=== PATIENT | male | born 1995 | race Caucasian/White ===

== ENCOUNTER 2019-08-05 22:25 | Emergency (ER) | payer SELFPAY ==
[~2019-08-05] VITALS: Ht 182.9 cm; Wt 81.6 kg
[2019-08-05 22:33] VITALS: BP_SYST 144
[2019-08-05 22:40] VITALS: BP_SYST 144
== END 2019-08-05 22:36 | disposition left against medical advice (07) ==
LOC: SED 22:25
DX: R55 Syncope and collapse (principal); R42 Dizziness and giddiness; F12.90 Cannabis use, unspecified, uncomplicated
CPT/HCPCS: 99283

== ENCOUNTER 2019-11-16 14:47 | Emergency (ER) | payer SELFPAY ==
[~2019-11-16] VITALS: Ht 182.9 cm; Wt 74.8 kg
[2019-11-16 14:55] VITALS: BP_SYST 135
[2019-11-16 16:15] VITALS: BP_SYST 119
== END 2019-11-16 16:15 | disposition home or self-care (01) ==
LOC: SED 14:47
DX: K04.7 Periapical abscess without sinus (principal); K02.9 Dental caries, unspecified; Z88.0 Allergy status to penicillin
CPT/HCPCS: 99283

== ENCOUNTER 2019-11-18 20:19 | Emergency (ER) | payer SELFPAY ==
[~2019-11-18] VITALS: Ht 182.9 cm; Wt 74.8 kg
[2019-11-18 20:30] VITALS: BP_SYST 153
--- NOTE | 2019-11-18 22:06 | NUR ---
Patient to ER bed 04 to gown for evaluation. Side rails up. Report given to AMBREEN Arias.
--- NOTE | 2019-11-18 22:10 | NUR ---
ER at bedside examining patient.
--- NOTE | 2019-11-18 22:12 | NUR ---
Pt presents to the ER c/o R lower tooth pain x 1 week. Pt came to ER on 11/16/19 and given clindamycin w/ no relief. Pt states pain has worsen and radiated to the jaw. Pt denies fever or SOB.
[2019-11-18] MEDS ORDERED: HYDROcodone/ACETAMIN 5-325 MG TAB (NORCO/ VICODIN) PO ONE (22:30)
[2019-11-18] MEDS ORDERED: CLINDAMYCIN 600 mg/50mL D5W 50 ML IV ONE (22:30)
[2019-11-18] MEDS ORDERED: DEXAMETHASONE SOD PHOSPHATE 10 MG/ML VIAL IVP ONE (22:30)
[2019-11-18] MEDS ORDERED: CLINDAMYCIN 900 mg/50mL D5W 50 ML IV ONE (22:45)
[2019-11-18] MEDS ORDERED: IOHEXOL 100 ML IV ONE (23:05)
--- NOTE | 2019-11-18 23:10 | NUR ---
Pt taken for CT scan w/ IV contrast via gurney by limited radiology technician.
--- NOTE | 2019-11-18 23:18 | NUR ---
Pt back from CT scan, in stable condition.
[2019-11-19 00:50] LABS: BASOPHILS # (AUTO) 0.1 K/uL (0.0-0.2); BASOPHILS % (AUTO) 0.5 % (0.0-2.0); EOSINOPHILS # (AUTO) 0.3 K/uL (0.0-0.4); EOSINOPHILS % (AUTO) 2.1 % (0.0-4.0); HEMATOCRIT 47.4 % (36-54); HEMOGLOBIN 15.9 g/dL (14.0-18.0); LYMPHOCYTES # (AUTO) 1.1 K/uL (1.0-5.5); LYMPHOCYTES % (AUTO) 7.9 % (20.5-51.5); MEAN CORPUSCULAR HEMOGLOBIN 31 pg (27-31); MEAN CORPUSCULAR HGB CONC 33 % (32-36); MEAN CORPUSCULAR VOLUME 92 fL (79.0-98.0); MONOCYTES # (AUTO) 1.4 K/uL (0.0-1.0); MONOCYTES % (AUTO) 10.8 % (1.7-9.3); NEUTROPHILS # (AUTO) 10.5 K/uL (1.8-7.7); NEUTROPHILS % (AUTO) 78.7 % (40.0-70.0); PLATELET COUNT (AUTO) 231 K/uL (130-430); RED BLOOD CELL COUNT(AUTO) 5.15 MIL/uL (4.2-6.2); RED CELL DISTRIBUTION WIDTH 13.8 % (9.0-15.0); WHITE BLOOD COUNT (AUTO) 13.3 K/uL (4.8-10.8)
[2019-11-19 01:05] LABS: CALCIUM 9.6 mg/dL (8.4-11.0); POTASSIUM 4.2 mmol/L (3.5-5.1)
[2019-11-19 01:15] LABS: INR 0.9 (0.80-1.20); PROTHROMBIN TIME 9.5 SECS (9.5-12.5)
[2019-11-19 01:20] VITALS: BP_SYST 137
--- NOTE | 2019-11-19 01:20 | NUR ---
Patient given written and verbal discharge instructions and verbalizes understanding. ER MD discussed with patient the results and treatment provided. Patient in stable condition. ID arm band removed. IV catheter removed intact and dressing applied, no active bleeding. Rx of [place] 5/325 given. Patient educated on pain management and to follow up with PMD. Pain Scale 6/10. Opportunity for questions provided and answered. Medication side effect fact sheet provided.
== END 2019-11-19 01:20 | disposition home or self-care (01) ==
LOC: SED 20:19
DX: J03.90 Acute tonsillitis, unspecified (principal); Z88.0 Allergy status to penicillin
CPT/HCPCS: 36415; 70491; 80048; 83605; 85025; 85610; 85730; 87040; 96365; 96375; 99284; J1100; J3490; Q9967

== ENCOUNTER 2019-11-19 23:49 | Emergency (ER) | payer SELFPAY ==
[~2019-11-19] VITALS: Ht 167.6 cm; Wt 65.8 kg
[2019-11-19 23:49] VITALS: BP_SYST 127
[2019-11-20 01:15] VITALS: BP_SYST 128
== END 2019-11-20 01:15 | disposition home or self-care (01) ==
LOC: SED 23:49
DX: J36 Peritonsillar abscess (principal); Z88.0 Allergy status to penicillin
CPT/HCPCS: 99283

== ENCOUNTER 2019-12-02 17:18 | Emergency (ER) | payer SELFPAY ==
[~2019-12-02] VITALS: Ht 182.9 cm; Wt 74.8 kg
[2019-12-02 17:18] VITALS: BP_SYST 130
--- NOTE | 2019-12-02 17:18 | NUR ---
Patient to ER surge tent for evaluation. Side rails up.
--- NOTE | 2019-12-02 17:19 | NUR ---
Patient came from home for evaluation of COVID-19 symptoms. A family member that lives with them tested positive yesterday.
--- NOTE | 2019-12-02 17:52 | NUR ---
ER in tent examining patient.
--- NOTE | 2019-12-02 19:06 | NUR ---
Report given to AMBREEN Beltrán for continuation of care.
[2019-12-02 19:34] VITALS: BP_SYST 130
--- NOTE | 2019-12-02 19:35 | NUR ---
Patient given written and verbal discharge instructions and verbalizes understanding. ER MD discussed with patient the results and treatment provided. Patient in stable condition. ID arm band removed. Rx of Dexamethasone,Zinc sulfate, Hydroxychloroquine and Azithromycin given. Patient educated on pain management and to follow up with PMD. Pain Scale 0/10 . Opportunity for questions provided and answered. Medication side effect fact sheet provided.
== END 2019-12-02 19:35 | disposition home or self-care (01) ==
LOC: SED 17:18
DX: R50.9 Fever, unspecified (principal); R43.2 Parageusia; R43.0 Anosmia; Z88.0 Allergy status to penicillin; Z20.828 Contact with and (suspected) exposure to other viral communicable diseases
CPT/HCPCS: 71045; 99283